=== PATIENT | male | born 1975 | race Caucasian/White ===

== ENCOUNTER 2020-10-27 06:47 | Outpatient (CLI) | payer OTHER ==
[2020-10-27 15:35] LABS: Hemoglobin 14.5 g/dL (14.0-18.0); Mean Corpuscular HGB CONC 33.8 G/DL (32.0-36.0); Mean Corpuscular Hemoglobin 30.9 PG (27.0-33.0); Mean Corpuscular Volume 91.3 fl (80.0-100.0); Mean Platelet Volume 11.3 fl (7.4-10.4); Platelet Count 268 10x3/uL (130-400); RBC Distribution Width 12.4 % (11.5-14.5); White Blood Cell (WBC) Count 7.4 10x3/uL (4.5-11.0)
[2020-10-27 15:48] LABS: Anion Gap 14 mmol/L (10-20); BUN (Urea Nitrogen) 17 mg/dL (8.9-20.6); Calc. Creatinine Clearance 0 mL/min (70-130); Calcium 9.4 mg/dL (7.8-10.44); Carbon Dioxide 23 mmol/L (22-29); Chloride 109 mmol/L (98-107); Glucose 93 mg/dL (70-105); Potassium 4.8 mmol/L (3.5-5.1); Sodium 141 mmol/L (136-145)
[2020-10-28 00:18] LABS: SARS-CoV-2 MS2 Positive; SARS-CoV-2 N Gene Negative; SARS-CoV-2 S Gene Negative; SARS-CoV-2 by NAA Not Detected (NotDetected); SARS-CoV-2 orf1ab Negative
== END 2020-10-27 06:48 | disposition home or self-care (01) ==
LOC: LABBT 06:47
PROVIDERS: ATTEND Neurological Surgery
DX: Z01.818 Encounter for other preprocedural examination (principal); M47.12 Other spondylosis with myelopathy, cervical region; Z20.828 Contact with and (suspected) exposure to other viral communicable diseases
CPT/HCPCS: 80048; 85027; 87635; 93005; 93010; U0003

== ENCOUNTER 2020-11-01 06:18 | Day surgery (SDC) | payer OTHER ==
[2020-10-26 11:20] VITALS: BMI 30.8
[2020-11-01] MEDS ORDERED: Fentanyl 100 MCG/2 ML VIAL ONE ×3 (06:44→09:59)
[2020-11-01] MEDS ORDERED: Thrombin 5000 UNITS/5 ML VIAL ONE (07:01)
[2020-11-01] MEDS ORDERED: Midazolam HCl 2 mg/2 ml Vial ONE (07:43)
[2020-11-01] MEDS ORDERED: SUGAMMADEX SODIUM 200 MG/2 ML VIAL ONE (09:10)
--- NOTE | 2020-11-01 09:27 | OP ---
DATE OF PROCEDURE: 11/01/2020 [employer] MANAGER: Samantha Duggan PA-C. PROCEDURES PERFORMED: Anterior cervical diskectomy C5-C6; interbody arthrodesis; intervertebral biomechanical device; local morselized autograft; demineralized bone matrix; anterior titanium instrumentation, C5-C6. DESCRIPTION OF PROCEDURE: The patient was brought into the operating room and intubated. He was positioned supine with head in modest extension on a gel-filled donut. An incision was made in the right precervical area and dissected medial to the sternocleidomastoid muscle. We identified the anterior cervical spine, and the level was confirmed by x-ray. We placed distraction across C5-C6, removed the intervertebral disk and completely decompressed the neural elements. The bony endplates were then decorticated for the purpose of arthrodesis and appropriate-sized intervertebral biomechanical PEEK device was brought into the field, filled with demineralized bone matrix and local morselized autograft, and tapped into place securely at C5-C6. Next, an anterior plate was brought into the field and secured to C5 and C6 using two 14-mm screws at each level. It should be noted that the plate was separate and distinct from the interbody device and not integral to it. The wound was extensively irrigated and MAC hemostasis was secured, and the wound was closed in anatomic layers. Job ID: [id number]
[2020-11-01] MEDS ORDERED: PROPOFOL 200 MG/20 ML VIAL ONE (10:08)
[2020-11-01] MEDS ORDERED: Lidocaine 1% PF 5 ML VIAL ONE (10:08)
[2020-11-01] MEDS ORDERED: Rocuronium Bromide 10 MG/ML (10ML VIAL) ONE (10:08)
[2020-11-01] MEDS ORDERED: Ondansetron PF 4 MG/2 ML Vial ONE (10:08)
[2020-11-01] MEDS ORDERED: Dexamethasone 20 MG/5 ML VIAL ONE (10:08)
[2020-11-01] MEDS ORDERED: Tamsulosin HCl 0.4 MG CAP ONE (10:13)
[2020-11-01] MEDS ORDERED: HYDROcodone/Acetaminophen 5/325 mg Tablet ONE (10:59)
== END 2020-11-01 11:40 | disposition home or self-care (01) ==
LOC: SDC 06:18
PROVIDERS: ATTEND Neurological Surgery
PROC: 0RT30ZZ Resection of Cervical Vertebral Disc, Open Approach (ICD-10-PCS; principal; 2020-11-01)
PROC: 0RG10A0 Fusion of Cervical Vertebral Joint with Interbody Fusion Device, Anterior Approach, Anterior Column, Open Approach (ICD-10-PCS; principal; 2020-11-01)
DX: M47.12 Other spondylosis with myelopathy, cervical region (principal); M48.02 Spinal stenosis, cervical region; M54.12 Radiculopathy, cervical region; K21.9 Gastro-esophageal reflux disease without esophagitis; G89.29 Other chronic pain
CPT/HCPCS: 76000; C1713; C1776; J0690; J1100; J2250; J2405; J2704; J3010; J3490